=== PATIENT | male | born 1985 | race Two or more races ===

== ENCOUNTER 2025-01-25 00:16 | Inpatient (IN) | payer OTHER ==
[2025-01-25] VITALS (7 sets, daily range): BP systolic 120–127; BP diastolic 63–98; TEMP 98–100.6; O2SAT 93–97
[~2025-01-25] VITALS: Ht 175.3 cm; Wt 131.1 kg
[2025-01-25 02:08] LABS: BASOPHILS # (AUTO) 0.1 K/uL (0.0-0.2); BASOPHILS % (AUTO) 0.7 % (0.0-2.0); EOSINOPHILS % (AUTO) 0.1 % (0.0-6.0); HEMATOCRIT 38 % (39-51); HEMOGLOBIN 11.5 g/dL (13.5-17.5); LYMPHOCYTES # (AUTO) 0.9 K/uL (0.8-4.8); LYMPHOCYTES % (AUTO) 6.5 % (20.0-44.0); MEAN CORPUSCULAR HEMOGLOBIN 23 PG (26.0-33.0); MEAN CORPUSCULAR HGB CONC 31 g/dl (31.0-36.0); MEAN CORPUSCULAR VOLUME 74 fL (80-96); MONOCYTES # (AUTO) 0.9 K/uL (0.1-1.30); MONOCYTES % (AUTO) 6.5 % (2.0-12.0); NEUTROPHILS # (AUTO) 11.8 K/uL (1.8-8.9); NEUTROPHILS % (AUTO) 86.2 % (43.0-81.0); PLATELET COUNT (AUTO) 350 K/uL (150-450); RED BLOOD CELL COUNT(AUTO) 5.08 MIL/uL (4.5-6.0); RED CELL DISTRIBUTION WIDTH 16.4 % (11.5-15.0); WHITE BLOOD COUNT (AUTO) 13.7 K/uL (4.3-11.0)
[2025-01-25 02:25] LABS: CALCIUM, SERUM 9.4 mg/dL (8.5-10.1); CARBON DIOXIDE 27 mmol/L (21-32); CHLORIDE 100 mmol/L (98-107); CREATININE 2.7 mg/dL (0.6-1.3); GLUCOSE 131 mg/dL (74-106); POTASSIUM 4.6 mmol/L (3.5-5.1); SODIUM SERUM 136 mmol/L (136-145); UREA NITROGEN, BLOOD 35 mg/dL (7-18)
[2025-01-25 02:34] LABS: LACTIC ACID 1.5 mmol/L (0.4-2.0)
[2025-01-25 02:37] LABS: ALANINE AMINOTRANSFERASE 39 U/L (12-78); ALBUMIN 4.4 g/dL (3.4-5.0); ALCOHOL, BLOOD < 3 mg/dL (0-10); ALKALINE PHOSPHATASE 104 U/L (46-116); ASPARTATE AMINOTRANSFERASE 33 U/L (15-37); BILIRUBIN,TOTAL 0.3 mg/dL (0.2-1.0); NT-PRO BNP 141 pg/mL (0-125); TOTAL PROTEIN, SERUM 9.1 g/dL (6.4-8.2)
[2025-01-25 04:06] LABS: APPEARANCE,URINE CLEAR (CLEAR); BILIRUBIN,URINE NEGATIVE (NEGATIVE); BLOOD, URINE NEGATIVE Ery/uL (NEGATIVE); COLOR,URINE YELLOW (YELLOW); KETONES,URINE NEGATIVE (NEGATIVE); LEUKOCYTE ESTERASE ,URINE NEGATIVE (NEGATIVE); NITRITE, URINE NEGATIVE (NEGATIVE); PROTEIN,URINE 1+ mg/dl (NEGATIVE); UGLUCOSE NEGATIVE (NEGATIVE); UROBILINOGEN,URINE 0.2 EU/dL (0.2)
[2025-01-25 04:22] LABS: AMPHETAMINE, URINE NEGATIVE (NEGATIVE); BARBITURATE, URINE NEGATIVE (NEGATIVE); COCCAINE, URINE NEGATIVE (NEGATIVE); PHENCYCLIDINE SCREEN,URINE NEGATIVE (NEGATIVE)
[2025-01-25 04:33] LABS: BENZODIAZEPINE, URINE POSITIVE (NEGATIVE); CANNABINOID, URINE POSITIVE (NEGATIVE); OPIATE, URINE POSITIVE (NEGATIVE)
[2025-01-25] MEDS: ALBUTEROL FS 2.5 MG/3 ML VIAL.NEB NEB ONE (04:58)
[2025-01-25] MEDS ORDERED: ALBUTEROL FS 2.5 MG/3 ML VIAL.NEB ONE (05:04)
[2025-01-25 05:30] LABS: ABG BASE EXCESS -5.4 mmol/L (-2.0-3.0); ABG OXYGEN SATURATION 94.9 % (94.0-98.0); ABG PCO2 23.5 mmHg (35.0-48.0); ABG PH 7.472 (7.350-7.450); ABG TOTAL HEMOGLOBIN 10.8 G/dL (13.5-17.5); COHb 0.3 % (0.5-1.5); MetHb 0.3 % (0.0-1.5); O2Hb 94.3 % (94.0-97.0); SITE, ABG LEFT BRACHIAL
[2025-01-25] MEDS ORDERED: MAG HYDROX/AL HYDROX/SIMETH 30 ML UDC PO PRN (06:30)
[2025-01-25] MEDS ORDERED: ONDANSETRON HCL/PF 4 MG/2 ML VIAL IVP PRN (06:30)
[2025-01-25] MEDS ORDERED: MAGNESIUM HYDROXIDE 30 ML UDC PO PRN (06:30)
[2025-01-25 07:11] LABS: CHOLESTEROL 167 mg/dL (<200); HDL CHOLESTEROL 41 mg/dL (40-60); LDL 111 mg/dL (0-99); TRIGLYCERIDES 90 mg/dL (30-150)
[2025-01-25] MEDS: PANTOPRAZOLE 40 MG TABLET.DR PO SCH (07:55)
[2025-01-25] MEDS: ACETAMINOPHEN 325 MG TABLET PO PRN (07:56)
[2025-01-25] MEDS ORDERED: PREG50CA PO (10:51)
[2025-01-25] MEDS ORDERED: SPIR25TA PO (10:51)
[2025-01-25] MEDS ORDERED: ALBU8.5H8 IH (10:51)
[2025-01-25] MEDS ORDERED: ACYC400T19 PO (10:51)
[2025-01-25] MEDS ORDERED: TEZSPIRE SQ (10:51)
[2025-01-25] MEDS ORDERED: LEVO25TA9 PO (10:51)
[2025-01-25] MEDS ORDERED: ALLO100T PO (10:51)
[2025-01-25] MEDS ORDERED: ESCI10TA PO (10:51)
[2025-01-25] MEDS ORDERED: HYDR-3972 PO (10:51)
[2025-01-25] MEDS ORDERED: KETO10TA2 PO (10:51)
[2025-01-25] MEDS ORDERED: LANS30CA56 PO (10:51)
[2025-01-25] MEDS ORDERED: TRELEGY 200-62.5-25 IH (10:51)
[2025-01-25] MEDS ORDERED: TIZA4CAP PO (10:51)
[2025-01-25] MEDS ORDERED: COLC0.6T67 PO (10:51)
[2025-01-25] MEDS: LEVOFLOXACIN 500 MG /D5W 100ML 100 ML IV SCH (10:52)
[2025-01-25] MEDS: HEPARIN SODIUM, PORCINE 5000 UNITS/1 ML VIAL IV ONE ×2 (11:19→20:54)
[2025-01-25] MEDS: HEPARIN INFUSION/D5W 500 ML IV PRN (11:41)
[2025-01-25 12:34] LABS: URIC ACID 7.6 mg/dL (2.6-7.2)
[2025-01-25] MEDS: ALLOPURINOL 100 MG TABLET PO SCH (13:39)
[2025-01-25] MEDS: COLCHICINE 0.6 MG TABLET PO SCH (13:41)
[2025-01-25] MEDS: ESCITALOPRAM OXALATE (10 MG) 10 MG TABLET PO SCH (13:42)
[2025-01-25] MEDS: LEVOTHYROXINE SODIUM 25 MCG TABLET PO SCH (13:42)
[2025-01-25] MEDS: IV D5/ 0.9% NACL 1,000 ML IV PRN (14:48)
[2025-01-25] MEDS: CEFTRIAXONE 1 G in IV D5W 50 ML IV SCH (15:16)
[2025-01-25] MEDS: HYDROCODONE/APAP 5/325MG TABLET PO PRN (17:11)
[2025-01-25 19:22] LABS: INR 1.07 (0.91-1.10); PARTIAL THROMBOPLASTIN TIME 43.2 SEC (24.3-34.3); PROTHROMBIN TIME 11.3 SECS (9.2-11.1)
[2025-01-26] VITALS: BP 97/84; TEMP 98.4; O2SAT 97
[2025-01-26] MEDS: ALBUTEROL FS 2.5 MG/3 ML VIAL.NEB NEB PRN (01:33)
[2025-01-26] MEDS: IPRATROPIUM NEB FS 0.5 MG/2.5 ML AMPUL.NEB NEB PRN (01:33)
[2025-01-26 03:19] LABS: BASOPHILS % (AUTO) 0.3 % (0.0-2.0); EOSINOPHILS % (AUTO) 0.2 % (0.0-6.0); HEMATOCRIT 31 % (39-51); HEMOGLOBIN 9.2 g/dL (13.5-17.5); LYMPHOCYTES # (AUTO) 1.9 K/uL (0.8-4.8); LYMPHOCYTES % (AUTO) 22.9 % (20.0-44.0); MEAN CORPUSCULAR HEMOGLOBIN 22 PG (26.0-33.0); MEAN CORPUSCULAR HGB CONC 29 g/dl (31.0-36.0); MEAN CORPUSCULAR VOLUME 76 fL (80-96); MONOCYTES # (AUTO) 0.6 K/uL (0.1-1.30); MONOCYTES % (AUTO) 6.7 % (2.0-12.0); NEUTROPHILS # (AUTO) 5.8 K/uL (1.8-8.9); NEUTROPHILS % (AUTO) 69.9 % (43.0-81.0); PLATELET COUNT (AUTO) 274 K/uL (150-450); RED BLOOD CELL COUNT(AUTO) 4.14 MIL/uL (4.5-6.0); RED CELL DISTRIBUTION WIDTH 16.7 % (11.5-15.0); WHITE BLOOD COUNT (AUTO) 8.3 K/uL (4.3-11.0)
[2025-01-26 03:36] LABS: ALBUMIN 3.3 g/dL (3.4-5.0); BILIRUBIN,TOTAL 0.2 mg/dL (0.2-1.0); CALCIUM, SERUM 8.5 mg/dL (8.5-10.1); CREATININE 1.8 mg/dL (0.6-1.3); MAGNESIUM 2.5 mg/dL (1.8-2.4); PHOSPHORUS 4.7 mg/dL (2.5-4.9); POTASSIUM 3.8 mmol/L (3.5-5.1); TOTAL PROTEIN, SERUM 7.1 g/dL (6.4-8.2)
[2025-01-26 04:00] VITALS: BP 131/79; TEMP 98.4; O2SAT 97
[2025-01-26 07:00] LABS: ABG BASE EXCESS -4.9 mmol/L (-2.0-3.0); ABG OXYGEN SATURATION 94.9 % (94.0-98.0); ABG PCO2 32.2 mmHg (35.0-48.0); ABG PH 7.392 (7.350-7.450); ABG PO2 76.7 mmHg (83.0-108.0); COHb 0.3 % (0.5-1.5); MetHb 0.2 % (0.0-1.5); O2Hb 94.4 % (94.0-97.0); SITE, ABG RIGHT RADIAL
[2025-01-26 08:00] VITALS: BP 125/79; TEMP 98.8; O2SAT 97
[2025-01-26] MEDS: FLUTICASONE/VILANTEROL 1 EACH BLST.W.DEV IH SCH (09:16)
[2025-01-26] MEDS ORDERED: DEXTROSE 50%-WATER 50 ML DISP.SYRIN IV PRN (10:30)
[2025-01-26] MEDS ORDERED: FUROSEMIDE 20 MG/2 ML VIAL IV SCH (10:30)
[2025-01-26] MEDS: AZITHROMYCIN 250 MG TABLET PO SCH (11:13)
[2025-01-26] MEDS: methylPREDNISolone SOD SUCC 40 MG/ML VIAL IV SCH (11:13)
[2025-01-26] MEDS: HEPARIN SODIUM, PORCINE 5000 UNITS/1 ML VIAL IV ONE (11:37)
[2025-01-26] MEDS: INSULIN REGULAR, HUMAN 100 UNIT/ML 3 ML VIAL SQ PRN (11:51)
[2025-01-26 12:00] VITALS: BP 132/99; TEMP 99; O2SAT 95
[2025-01-26] MEDS: BLOOD SUGAR DIAGNOSTIC 1 EACH STRIP IN SCH (12:10)
[2025-01-26] MEDS: ZOSYN IVPB 3.375 G in IV D5W 50ml IV SCH (12:11)
[2025-01-26] MEDS ORDERED: METRONIDAZOLE 500 MG TABLET PO SCH (13:00)
[2025-01-26 16:00] VITALS: BP 126/54; TEMP 99.1; O2SAT 97
[2025-01-26 20:00] VITALS: BP 122/70; TEMP 98.1; O2SAT 97
[2025-01-27] VITALS (10 sets, daily range): BP systolic 125–150; BP diastolic 64–86; TEMP 97.3–98.2; O2SAT 93–100
[2025-01-27 07:36] LABS: BASOPHILS % (AUTO) 0.1 % (0.0-2.0); HEMATOCRIT 34 % (39-51); HEMOGLOBIN 10.1 g/dL (13.5-17.5); LYMPHOCYTES # (AUTO) 1.2 K/uL (0.8-4.8); LYMPHOCYTES % (AUTO) 6.6 % (20.0-44.0); MEAN CORPUSCULAR HEMOGLOBIN 23 PG (26.0-33.0); MEAN CORPUSCULAR HGB CONC 30 g/dl (31.0-36.0); MEAN CORPUSCULAR VOLUME 74 fL (80-96); MONOCYTES # (AUTO) 0.5 K/uL (0.1-1.30); MONOCYTES % (AUTO) 2.8 % (2.0-12.0); NEUTROPHILS % (AUTO) 90.5 % (43.0-81.0); PLATELET COUNT (AUTO) 406 K/uL (150-450); RED BLOOD CELL COUNT(AUTO) 4.51 MIL/uL (4.5-6.0); RED CELL DISTRIBUTION WIDTH 16.6 % (11.5-15.0); WHITE BLOOD COUNT (AUTO) 18.7 K/uL (4.3-11.0)
[2025-01-27 08:01] LABS: ALBUMIN 3.8 g/dL (3.4-5.0); BILIRUBIN,TOTAL 0.3 mg/dL (0.2-1.0); CREATININE 1.5 mg/dL (0.6-1.3); MAGNESIUM 2.2 mg/dL (1.8-2.4); PHOSPHORUS 4.2 mg/dL (2.5-4.9); POTASSIUM 4.2 mmol/L (3.5-5.1); TOTAL PROTEIN, SERUM 8.6 g/dL (6.4-8.2)
[2025-01-27 08:10] LABS: PTH, INTACT 23 pg/mL (15-65)
[2025-01-27 08:51] LABS: CALCIUM, SERUM 9.7 mg/dL (8.5-10.1)
[2025-01-27] MEDS ORDERED: FUROSEMIDE 20 MG/2 ML VIAL IV SCH (13:00)
[2025-01-27] MEDS: HEPARIN SODIUM, PORCINE 5000 UNITS/1 ML VIAL IV ONE (17:54)
[2025-01-27] MEDS ORDERED: HEPARIN INFUSION/D5W 500 ML IV ONE (23:08)
[2025-01-28] VITALS (12 sets, daily range): BP systolic 111–147; BP diastolic 67–85; TEMP 96.8–98.6; O2SAT 92–100
[2025-01-28] MEDS: HEPARIN SODIUM, PORCINE 5000 UNITS/1 ML VIAL IV ONE (01:19)
[2025-01-28 07:32] LABS: ALBUMIN 3.3 g/dL (3.4-5.0); BILIRUBIN,TOTAL 0.2 mg/dL (0.2-1.0); CALCIUM, SERUM 9.1 mg/dL (8.5-10.1); CREATININE 1.5 mg/dL (0.6-1.3); MAGNESIUM 2.2 mg/dL (1.8-2.4); PHOSPHORUS 5.5 mg/dL (2.5-4.9); POTASSIUM 5.1 mmol/L (3.5-5.1); TOTAL PROTEIN, SERUM 7.5 g/dL (6.4-8.2)
[2025-01-28 07:47] LABS: EOSINOPHILS % (AUTO) 0.3 % (0.0-6.0); HEMATOCRIT 29 % (39-51); HEMOGLOBIN 8.8 g/dL (13.5-17.5); MEAN CORPUSCULAR HEMOGLOBIN 23 PG (26.0-33.0); MEAN CORPUSCULAR HGB CONC 31 g/dl (31.0-36.0); MEAN CORPUSCULAR VOLUME 74 fL (80-96); MONOCYTES # (AUTO) 0.7 K/uL (0.1-1.30); MONOCYTES % (AUTO) 3.7 % (2.0-12.0); NEUTROPHILS # (AUTO) 15.8 K/uL (1.8-8.9); PLATELET COUNT (AUTO) 311 K/uL (150-450); RED BLOOD CELL COUNT(AUTO) 3.87 MIL/uL (4.5-6.0); RED CELL DISTRIBUTION WIDTH 16.5 % (11.5-15.0); WHITE BLOOD COUNT (AUTO) 17.5 K/uL (4.3-11.0)
[2025-01-28] MEDS: APIXABAN 5 MG TABLET PO SCH (12:07)
[2025-01-28] MEDS: FUROSEMIDE 20 MG/2 ML VIAL IV ONE (12:07)
[2025-01-28 13:07] LABS: *SPE ALBUMIN 3.2 g/dL (2.9-4.4); *SPE ALPHA-1-GLOBULIN 0.3 g/dL (0.0-0.4); *SPE ALPHA-2-GLOBULIN 0.9 g/dL (0.4-1.0); *SPE BETA GLOBULIN 0.9 g/dL (0.7-1.3); *SPE GLOBULIN, TOTAL 3.2 g/dL (2.2-3.9); *SPE M-SPIKE Not Observed g/dL (Not Observed); *SPE PROTEIN TOTAL 6.4 g/dL (6.0-8.5); *SPEGAMMA GLOBULIN 1.1 g/dL (0.4-1.8)
[2025-01-28] MEDS: PIPERACILLIN /TAZOBACTAM 3.375 G in IV D5W 100 ML IV SCH (13:37)
[2025-01-28] MEDS: IPRATROPIUM NEB FS 0.5 MG/2.5 ML AMPUL.NEB NEB SCH (14:10)
[2025-01-28] MEDS: ALBUTEROL FS 2.5 MG/3 ML VIAL.NEB NEB SCH (14:10)
[2025-01-29] VITALS (12 sets, daily range): BP systolic 121–166; BP diastolic 81–96; TEMP 97.7–98.6; O2SAT 95–100
[2025-01-29 08:35] LABS: HEMATOCRIT 30 % (39-51); HEMOGLOBIN 8.9 g/dL (13.5-17.5); LYMPHOCYTES # (AUTO) 1.4 K/uL (0.8-4.8); LYMPHOCYTES % (AUTO) 10.2 % (20.0-44.0); MEAN CORPUSCULAR HEMOGLOBIN 22 PG (26.0-33.0); MEAN CORPUSCULAR HGB CONC 30 g/dl (31.0-36.0); MEAN CORPUSCULAR VOLUME 73 fL (80-96); MONOCYTES # (AUTO) 0.8 K/uL (0.1-1.30); MONOCYTES % (AUTO) 6.1 % (2.0-12.0); NEUTROPHILS # (AUTO) 11.7 K/uL (1.8-8.9); NEUTROPHILS % (AUTO) 83.7 % (43.0-81.0); PLATELET COUNT (AUTO) 338 K/uL (150-450); RED BLOOD CELL COUNT(AUTO) 4.03 MIL/uL (4.5-6.0)
[2025-01-29] MEDS: APIXABAN 5 MG TABLET PO SCH (08:39)
[2025-01-29 08:56] LABS: ALBUMIN 3.4 g/dL (3.4-5.0); BILIRUBIN,TOTAL 0.3 mg/dL (0.2-1.0); CALCIUM, SERUM 9.4 mg/dL (8.5-10.1); CREATININE 1.6 mg/dL (0.6-1.3); MAGNESIUM 2.4 mg/dL (1.8-2.4); PHOSPHORUS 4.8 mg/dL (2.5-4.9); POTASSIUM 4.8 mmol/L (3.5-5.1); TOTAL PROTEIN, SERUM 7.4 g/dL (6.4-8.2)
[2025-01-29] MEDS: hydrALAZINE HCL IV 20 MG VIAL IV PRN (12:13)
[2025-01-29] MEDS ORDERED: LEVO500T90 PO (15:57)
[2025-01-29] MEDS ORDERED: PANT40TA49 PO (15:57)
[2025-01-29] MEDS ORDERED: FLUT1BLS IH (15:57)
[2025-01-29] MEDS ORDERED: APIX5TAB PO ×2 (15:57)
[2025-01-30] VITALS (12 sets, daily range): BP systolic 134–148; BP diastolic 65–98; TEMP 97.8–98.3; O2SAT 96–100
[2025-01-30 07:03] LABS: BASOPHILS % (AUTO) 0.1 % (0.0-2.0); HEMATOCRIT 32 % (39-51); HEMOGLOBIN 9.9 g/dL (13.5-17.5); LYMPHOCYTES # (AUTO) 1.7 K/uL (0.8-4.8); LYMPHOCYTES % (AUTO) 11.6 % (20.0-44.0); MEAN CORPUSCULAR HEMOGLOBIN 23 PG (26.0-33.0); MEAN CORPUSCULAR HGB CONC 31 g/dl (31.0-36.0); MEAN CORPUSCULAR VOLUME 73 fL (80-96); MONOCYTES # (AUTO) 0.9 K/uL (0.1-1.30); MONOCYTES % (AUTO) 6.5 % (2.0-12.0); NEUTROPHILS # (AUTO) 11.8 K/uL (1.8-8.9); NEUTROPHILS % (AUTO) 81.8 % (43.0-81.0); PLATELET COUNT (AUTO) 348 K/uL (150-450); RED BLOOD CELL COUNT(AUTO) 4.38 MIL/uL (4.5-6.0); RED CELL DISTRIBUTION WIDTH 16.7 % (11.5-15.0); WHITE BLOOD COUNT (AUTO) 14.4 K/uL (4.3-11.0)
[2025-01-30 07:21] LABS: CALCIUM, SERUM 9.5 mg/dL (8.5-10.1); CREATININE 1.4 mg/dL (0.6-1.3); MAGNESIUM 2.4 mg/dL (1.8-2.4); PHOSPHORUS 4.4 mg/dL (2.5-4.9); POTASSIUM 5.4 mmol/L (3.5-5.1)
[2025-01-30] MEDS: predniSONE 20 MG TABLET PO SCH (08:16)
[2025-01-30 09:50] LABS: ANISOCYTOSIS 1+; LYMPHOCYTES % (MANUAL) 15 % (16-48); MONOCYTES % (MANUAL) 6 % (0-11.0); NEUTROPHILS % (MANUAL) 79 (42-76); PLATELET ESTIMATE ADEQUATE
[2025-01-30] MEDS ORDERED: SODIUM ZIRCONIUM CYCLOSILICATE 5 GM POWD.PACK PO ONE (13:00)
[2025-01-30] MEDS: SODIUM ZIRCONIUM CYCLOSILICATE 10 GM POWD.PACK PO ONE (13:24)
[2025-01-31] VITALS (9 sets, daily range): BP systolic 141–148; BP diastolic 81–98; TEMP 97.3–98.2; O2SAT 96–99
[2025-01-31 07:16] LABS: CREATININE 1.4 mg/dL (0.6-1.3); MAGNESIUM 2.2 mg/dL (1.8-2.4); PHOSPHORUS 3.8 mg/dL (2.5-4.9); POTASSIUM 4.2 mmol/L (3.5-5.1)
[2025-01-31 07:40] LABS: BASOPHILS % (AUTO) 0.2 % (0.0-2.0); HEMATOCRIT 34 % (39-51); HEMOGLOBIN 10.2 g/dL (13.5-17.5); LYMPHOCYTES # (AUTO) 3.6 K/uL (0.8-4.8); LYMPHOCYTES % (AUTO) 20.1 % (20.0-44.0); MEAN CORPUSCULAR HEMOGLOBIN 22 PG (26.0-33.0); MEAN CORPUSCULAR HGB CONC 30 g/dl (31.0-36.0); MEAN CORPUSCULAR VOLUME 73 fL (80-96); MONOCYTES # (AUTO) 1.3 K/uL (0.1-1.30); MONOCYTES % (AUTO) 7.2 % (2.0-12.0); NEUTROPHILS # (AUTO) 12.9 K/uL (1.8-8.9); NEUTROPHILS % (AUTO) 72.5 % (43.0-81.0); PLATELET COUNT (AUTO) 389 K/uL (150-450); RED BLOOD CELL COUNT(AUTO) 4.66 MIL/uL (4.5-6.0); RED CELL DISTRIBUTION WIDTH 16.3 % (11.5-15.0); WHITE BLOOD COUNT (AUTO) 17.8 K/uL (4.3-11.0)
[2025-01-31] MEDS ORDERED: APIX5TAB PO (10:46)
[2025-01-31 14:40] LABS: LYMPHOCYTES % (MANUAL) 20 % (16-48)
[2025-01-31 14:41] LABS: ANISOCYTOSIS 1+; MONOCYTES % (MANUAL) 5 % (0-11.0); NEUTROPHILS % (MANUAL) 75 (42-76); PLATELET ESTIMATE ADEQUATE
[2025-02-04] MEDS ORDERED: APIXABAN 5 MG TABLET PO SCH (09:00)
== END 2025-01-31 17:20 | DRG 134 ==
LOC: ER 00:18 → TELE1 06:03 → TELE-TD 01-26 08:11 → TELE1 01-27 09:31
PROVIDERS: ADMIT Nurse Practitioner Acute Care; ATTEND Nurse Practitioner Acute Care
PROC: 5A09357 Assistance with Respiratory Ventilation, Less than 24 Consecutive Hours, Continuous Positive Airway Pressure (ICD-10-PCS; principal; 2025-01-25)
DX: I26.99 Other pulmonary embolism without acute cor pulmonale (principal); J96.91 Respiratory failure, unspecified with hypoxia; J69.0 Pneumonitis due to inhalation of food and vomit; N17.9 Acute kidney failure, unspecified; J45.901 Unspecified asthma with (acute) exacerbation; E83.9 Disorder of mineral metabolism, unspecified; G47.33 Obstructive sleep apnea (adult) (pediatric); R55 Syncope and collapse; D50.9 Iron deficiency anemia, unspecified; Z86.718 Personal history of other venous thrombosis and embolism; Z79.01 Long term (current) use of anticoagulants; M10.9 Gout, unspecified; N18.9 Chronic kidney disease, unspecified; E03.9 Hypothyroidism, unspecified; D72.829 Elevated white blood cell count, unspecified; Z87.442 Personal history of urinary calculi; E87.5 Hyperkalemia; G62.9 Polyneuropathy, unspecified; D72.828 Other elevated white blood cell count; Z71.3 Dietary counseling and surveillance; E87.70 Fluid overload, unspecified; Z68.41 Body mass index [BMI] 40.0-44.9, adult; F99 Mental disorder, not otherwise specified
CPT/HCPCS: 36415; 36600; 70450-TC; 71045-TC; 76770-TC; 78582; 80048-TC; 80053-TC; 80061-TC; 82550-TC; 82803-TC; 82962-TC; 83540-TC; 83605-TC; 83735-TC; 83880; 83970; 84100-TC; 84155; 84165; 84484-TC; 84550-TC; 85025-TC; 85378-TC; 85610-TC; 85730-TC; 87040-TC; 87081-TC; 93307-TC; 93880-TC; 93970-TC; 94760-TC; 94761-TC; 94799-TC; 97110-TC; 97116-TC; 97530-TC; 97535-TC; 98960; A4223; A9540; A9567; G0378; G0480; J0360; J0696; J1644; J1815; J1938; J1956; J2543; J2919; J7042; J7050; J7060